=== PATIENT | male | born 1945 | race Caucasian/White ===

== ENCOUNTER → 2017-03-09 20:00 | Outpatient (CLI) | payer OTHER, MEDICARE, SELFPAY | PROVIDERS: Family Provider Internal Medicine; PCP Internal Medicine; Visit Provider Internal Medicine | DX: G47.33 Obstructive sleep apnea (adult) (pediatric) (principal) | CPT/HCPCS: 95810 ==

== ENCOUNTER → 2017-04-13 20:01 | Outpatient (CLI) | payer OTHER, SELFPAY | PROVIDERS: Family Provider Internal Medicine; PCP Internal Medicine; Visit Provider Internal Medicine | DX: G47.33 Obstructive sleep apnea (adult) (pediatric) (principal) | CPT/HCPCS: 95811 ==

== ENCOUNTER → 2017-06-10 09:56 | Outpatient (CLI) | payer OTHER, SELFPAY ==
[2017-06-10 10:27] LABS: Absolute Lymphocyte Count 1.94 X10^3/ul (0.83-4.51); Absolute Neutrophil Count 5.3 X10^3/uL (2.0-7.7); Basophil# 0.05 X10^3/uL; Basophil% 0.6 % (0-1); Eosinophil# 0.51 X10^3/uL; Eosinophils% 6.1 % (0-5); Hematocrit 41.4 % (40-54); Hemoglobin 13.4 g/dl (13.0-16.5); Lymphocyte # 1.94 X10^3/ul (4.0); Lymphocyte % 23.2 % (19-41); Mean Corp Hgb Conc 32.4 g/gl (32-36); Mean Corpuscular Hgb 31.2 pg (27.0-32.0); Mean Corpuscular Volume 96.5 fL (80-94); Mean Platelet Vol. 10.5 fl (6.2-12.0); Monocyte# 0.56 X10^3/uL; Monocyte% 6.7 % (0-10); Neutrophil # 5.29 X10^3/uL (2.7-7.7); Neutrophil % 63.2 % (47-70); Platelet Count 275 K/mm3 (150-450); RBC Distribution Width CV 14.1 % (11.6-14.6); RBC Distribution Width SD 48.1 fl (35.1-43.9); Red Blood Count 4.29 M/mm3 (4.6-6.2); White Blood Count 8.4 K/mm3 (4.4-11.0)
[2017-06-10 10:42] LABS: POSITIVE COUNT NO; POSITIVE DIFFERENTIAL NO; POSITIVE MORPHOLOGY NO
[2017-06-10 11:01] LABS: ALB/GLOB Ratio 1.2 RATIO (0.9-2.4); AST(SGOT) 14 U/L (15-37); Alanine Aminotransfer ALT/SGPT 18 U/L (16-61); Albumin, Serum 3.9 g/dL (3.2-5.0); Alkaline Phosphatase 57 U/L (45-117); Anion Gap 5 (5-15); BUN 17 mg/dL (7-18); BUN/Creat Ratio 13.7 RATIO (10-20); Calcium,Total 8.3 mg/dL (8.5-10.1); Chloride 105 mmol/L (98-107); Cholesterol 164 mg/dL (200); Creatinine, Serum 1.24 mg/dL (0.70-1.30); EST Glomerular Filtration Rate 61 mL/min (>60); Est Glom Filt Rate - Afr Amer 74 mL/min (>60); Globulin 3.2 g/dL (2.2-4.2); Glucose 97 mg/dL (74-106); High Density Lipoprotein 43 mg/dL; Protein, Total 7.1 g/dL (6.4-8.2); Sodium Level 140 mmol/L (136-145); Triglycerides 147 mg/dL; Very Low Density Lipoprotein 29 mg/dL (5-40)
[2017-06-11 07:08] LABS: Hepatitis C Ab <0.1 s/co ratio (0.0-0.9)
== END ==
PROVIDERS: Family Provider Internal Medicine; PCP Internal Medicine; Visit Provider Internal Medicine
DX: Z01.89 Encounter for other specified special examinations (principal); I10 Essential (primary) hypertension; E78.2 Mixed hyperlipidemia
CPT/HCPCS: 36415; 80053; 80061; 85025; 86803; 86804

== ENCOUNTER → 2017-12-16 10:37 | Outpatient (CLI) | payer OTHER, SELFPAY ==
--- OUTSIDE RECORDS SUMMARY | 2017-12-15 15:25 | XMS RPT_ITS ---
:1945 Author Organization [facility] Care Team Providers Name Role Phone LEE RENDON Attending Unavailable Talampas, Lee Attending Unavailable Talampas, Lee Primary Care Unavailable Talampas, Lee Attending Unavailable Talampas, Lee Primary Care Unavailable Talampas, Lee Attending Unavailable Talampas, Lee Referring Unavailable Talampas, Lee Primary Care Unavailable Talampas, Lee Attending Unavailable Talampas, Lee Referring Unavailable Talampas, Lee Primary Care Unavailable PROBLEMS PROBLEMS DATE TYPE CONDITION / CODE ATTENDING STATUS SOURCE 06/10/2017 Unknown Z01.89 - Encounter Pravin Lee Active E[facility] for other specified [facility] / Z01.89(ICD-10) Repository 06/10/2017 Unknown E78.2 - Mixed Talampas, Lee Active [facility] hyperlipidemia / Community E78.2(ICD-10) Hospital Repository 05/13/2017 Unknown G47.33 - Obstructive Talampvincent, Lee Active [facility] sleep apnea (adult) Community (pediatric) / Hospital G47.33(ICD-10) Repository PROCEDURES PROCEDURES No Procedure Records FoundRESULTS RESULTS PROGRESS Observed: 06/16/2017 Status: COMPLETED Source: [place] 4[facility]52 PM [facility] REPOSITORY HNO ID: [id number]: Lee Maice: (none)Author Type: PhysicianType: Progress NotesFiled: 06/17/2017 12:11 AMNote Text:Patient presents with:RecheckSUBJECTIVE:Rosie Alvarenga is a 72 year old year old gentleman here today for 6month follow up appointment for review of medical conditions.Leg pains --back of legs. Hard to move after been sleeping or aftersitting in car driving for a while. Tried roll on pain reliever appliedto lower neck and seemed to have helped. Tried because someone appliedessential oil in same area and seemed to prevent pain in legs after haddriven in the car fo a while after that.Pain from buttocks to posterior knee.On positive note: Feeling better on CPAP. Has Misha on phone to see brad having apneic episodes and down from over 30 an hour to about 2 perhour. Please with being able to sleep straight through the night.thiPlans on setting schedule for AM. Feels bad just sort of wasting time fromafter has breakfast around 7:30 till sits and watches TV for about 2hours. Feels like should be more productive. So will be schedulingwalking or other exercise in the AM. See about adding other activities.Does still sit with uztmutc-ic-wph every day since the had passedaway. Also helping deal with niece who is dying from liver cancer('s sister not dealing well with diagnosis and prognosis).Has gained weight through the winter. Already making healthy lifestylechanges.PAST MEDICAL HISTORYDiagnosis Date- Allergic rhinitis- Benign neoplasm of colon colon polyps- Calculus of kidney- Diverticulosis of colon (without mention of hemorrhage)- Macular degeneration of both eyes dry; seeing Dr. Muhammad- Obesity, unspecified- Other and unspecified hyperlipidemia- Unspecified essential hypertensionCurrent Outpatient Prescriptions:vit C,R-Bb-uhhjj-lutein-zeaxan (PRESERVISION AREDS 2) 458-717-90-0jc-pgfm-sp-mg cap Take 1 capsule by mouth twice daily.atorvastatin (LIPITOR) 10 mg tablet Take 1 tablet by mouth once daily.hydroCHLOROthiazide (HYDRODIURIL, ESIDRIX) 25 mg tablet Take 1 tablet bymouth once daily.COMPOUNDED PRESCRIPTION Lab draw: Hepatitis C antibody with reflexconfirmation, CBC with platelets, CMP, Lipid (I10) Essentialhypertension; (E78.2) Mixed hyperlipidemia; (Z01.89) Laboratory procedurecitalopram (CELEXA) 40 mg tablet Take 1 tablet by mouth once daily.fluticasone (FLONASE) 50 mcg/actuation nasal spray Use 1 [place] in eachnostril daily at bedtime.No current facility-administered medications for this visit.OBJECTIVE:BP 128/70 Pulse 60 Resp 16 Wt 105.7 kg (233 lb) SpO2 96% BMI32.5 kg/f6Debtxpb is alert, oriented times 3, no apparent distress, affect isbright, reactive.Last 5 Encounter BP Readings: Date: BP: 06/16/2017 128/70 12/07/2016 138/58 06/01/2016 130/80 11/25/2015 147/68 07/16/2015 122/70Last 5 Encounter Wt Readings: Date: Wt: 06/16/2017 105.7 kg (233 lb) 12/07/2016 100.7 kg (222 lb) 06/01/2016 101.2 kg (223 lb) 11/25/2015 98.9 kg (218 lb) 07/16/2015 102.1 kg (225 lb)Heart: Regular rate, rhythm, no murmurs, gallops, rubs.Lungs: Clear to auscultation, bilaterally, breathing non labored.Ext: No cyanosis, clubbing, or edema.RESULTSCBC W/DIFF, AUTOMATED Collected: 06/10/2017 10:06 AM Status: F Source:[facility] REPOSITORYTYPE CODE TESTS RESULT OUT OF RANGE REFERENCE UNITSLAB L100.1000 WBC 8.4 Normal 4.4-11.0 K/mm3LAB L100.1200 RBC 4.29 Low 4.6-6.2 M/mm3LAB L100.1300 HGB 13.4 Normal 13.0-16.5 g/dlLAB L100.1400 HCT 41.4 Normal 40-54 %LAB L100.1500 MCV 96.5 High 80-94 fLLAB L100.1600 MCH 31.2 Normal 27.0-32.0 pgLAB L100.1700 MCHC 32.4 Normal 32-36 g/glLAB L100.1810 RDW CV 14.1 Normal 11.6-14.6 %LAB L100.1820 RDW SD 48.1 High 35.1-43.9 flLAB L100.1900 PLT 275 Normal 150-450 K/mm3LAB L100.2000 MPV 10.5 Normal 6.2-12.0 flLAB L100.2100 NEUT% 63.2 Normal 47-70 %LAB L100.2200 LY% 23.2 Normal 19-41 %LAB L100.2300 MONO% 6.7 Normal 0-10 %LAB L100.2400 EO% 6.1 High 0-5 %LAB L100.2500 BASO% 0.6 Normal 0-1 %LAB L100.2550 IM GRAN % 0.200 Normal 0.0-0.9 %Result Comment: IG% - Immature Granulocytes (promyelocytes, myelocytes andmetamyelocytes) > 1% indicates that a LEFT SHIFT is Present.LAB L100.2620 Absolute Neut 5.3 Normal 2.0-7.7 X10 3/uLLAB L100.2720 Absolute Lymph 1.94 Normal 0.83-4.51 X10 3/ulPerformed By: #### L100.0100 #### [facility] [address] [place], [address] COMPREHENSIVE METABOLIC PROFIL Collected: 06/10/2017 10:06 AM Status: FSource: [facility] REPOSITORYTYPE CODE TESTS RESULT OUT OF RANGE REFERENCE UNITSLAB L501.0100 GLU 97 Normal 74-106 mg/dLResult Comment: Please note revised GLUCOSE reference range eyhjcmsqk88/02/2018.LAB L501.1000 BUN 17 Normal 7-18 mg/dLLAB L501.1100 CREAT,SERUM 1.24 Normal 0.70-1.30 mg/dLResult Comment: The validity of the calculated GFR AND GFRAA in patientsover 70 years has not been determined. Clinical correlation is essential.LAB L501.1110 EST GFR 61 Normal >60 mL/minResult Comment: Non- GFR CalcLAB L501.1115 EST GFR - AA 74 Normal >60 mL/minResult Comment: GFR CalcLAB L501.1300 BUN/CRE 13.7 Normal 10-20 RATIOLAB L501.1500 T PROT 7.1 Normal 6.4-8.2 g/dLLAB L501.1800 ALB 3.9 Normal 3.2-5.0 g/dLLAB L501.1950 GLOB 3.2 Normal 2.2-4.2 g/dLLAB L501.2000 A/G 1.2 Normal 0.9-2.4 RATIOLAB L501.2200 CA 8.3 Low 8.5-10.1 mg/dLLAB L501.4100 AST 14 Low 15-37 U/LLAB L501.4305 ALK P 57 Normal 45-117 U/LLAB L501.4405 ALT 18 Normal 16-61 U/LLAB L501.4600 T BILI 0.70 Normal 0.20-1.00 mg/dLLAB L501.5300 NA 140 Normal 136-145 mmol/LLAB L501.5600 K 4.0 Normal 3.5-5.1 mmol/LLAB L501.5900 CL 105 Normal 98-107 mmol/LLAB L501.6100 CO2 30.0 Normal 21.0-32.0 mmol/LLAB L501.6200 GAP 5 Normal 5-15 ?Performed By: #### L500.4050, L500.4100 #### [facility] [address] [place], [address] LIPID PROFILE Collected: 06/10/2017 10:06 AM Status: F Source: [facility] REPOSITORYTYPE CODE TESTS RESULT OUT OF RANGE REFERENCE UNITSLAB L501.4900 CHOL 164 Normal 200 mg/dLResult Comment: <200 mg/dL Desirable 200-240 mg/dL Borderline >240 mg/dLHigh RiskLAB L501.5000 TRIG 147 Normal ? mg/dLResult Comment: The drugs N-Acetylcysteine and Metamizole may falselydepress this assay. Serum Triglycerides Reference Interval Normal <150mg/dL Borderline high 150 - 199 mg/dL High 200 - 499 mg/dL Very High > or= 500 mg/dLLAB L501.6400 HDL 43 Normal ? mg/dLResult Comment: The drugs N-Acetylcysteine and Metamizole may falselydepress this assay. Reference Range HDL <40 mg/dL Low HDL Cholesterol HDL>or= 60 mg/dL High HDL CholesterolLAB L501.6500 LDL 92 Normal 0-130 mg/dLLAB L501.6600 VLDL 29 Normal 5-40 mg/dLPerformed By: #### L500.4050, L500.4100 #### [facility] [address] [place], [address] HEPATITS C AB W/ VERIFICATION Collected: 06/10/2017 10:06 AM Status: FSource: [facility] REPOSITORYTYPE CODE TESTS RESULT OUT OF RANGE REFERENCE UNITSLAB L3100.0750 HCV Ab <0.1 Normal 0.0-0.9 s/co ratioLAB L3100.0765 COMMENT Comment Normal . ?Result Comment: Non reactive HCV antibody screen is consistent with no HCVinfection, unless recent infection is suspected or other evidence existsto indicate HCV infection. Performed at: [facility] [id number] Jacquard Fixer: Aflonso Tipton PhD, Phone:[phone] AND PLAN:Encounter Diagnosis ICD-10-CM1. Essential hypertension I102. Low serum calcium R79.89 COMP METABOLIC PANEL VITAMIN D 25 HYDROXY3. Mixed hyperlipidemia E78.24. Pain in both lower extremities M79.604 M79.6055. Class 1 obesity due to excess calories without serious comorbidity withbody mass index (BMI) of 32.0 to 32.9 in adult E66.09 Z68.326. Laboratory procedure Z01.89 CANCELED: HEP C AB IA W/CONF SCRN7. Encounter for long-term current use of medication Z79.899 COMPMETABOLIC PANEL CBCBP controlled. Continue present management.Adjust Vitamin D as indicated--noted calcium level a little low.Lipids controlled. Continue present management.Discussed management of leg pains. Sounds like possible leg cramps. Okayto try essential oils and/or roll-on pain relief to see if helps. Also trystretching exercises. Further evaluation and treatment as indicated.Above issues addressed with patient. Patient involved in shared decisionmaking for management of her medical issues.History and medications reviewed. Epic updated as neededRefills taken care of and meds adjusted as indicated after reviewedhistory, exam and labs.Health Maintenance reviewed. Updated record and/or ordered tests asrecorded.Discussed that as long as healthy enough to want to pursue treatment forcancer if were to find it, then would continue screening for cancer--hernesto asked about colonoscopy since due next year if/when would quitchecking.Encouraged on efforts at healthy diet and regular exercise and adequatesleep.Needs to keep working on diet and exercise with lifestyle changes foreffective weight loss.Emotional support given. Encouraged him and to consider time away torest and regroup so can keep helping with caring for other people.The majority of the visit was spent counseling and/or coordinating carefor the patient. Svbf-dk-fojr time was at least 40 minutes.Lee Rendon MD CNOV Observed: 06/16/2017 Status: COMPLETED Source: [place] 4:40 PM [facility] REPOSITORY Office Visit (INTMWS) ROSIE ALVARENGA ([id number]) 1945 MDate Time Provider Department06/16/17 4:40 PM LEE RENDON INTMWS During your visit today, we recorded the following information about you: Pulse Respiration Blood pressure Weight 60/minute 16/minute 128/70 105.7 kgLee Rendon MD 06/17/2017 12:11 AM SignedPatient presents with:RecheckSUBJECTIVE:Rosie Alvarenga is a 72 year old year old gentleman here today for 6 monthfollow up appointment for review of medical conditions.Leg pains --back of legs. Hard to move after been sleeping or after sitting incar driving for a while. Tried roll on pain reliever applied to lower neck andseemed to have helped. Tried because someone applied essential oil in same areaand seemed to prevent pain in legs after had driven in the car fo a while afterthat.Pain from buttocks to posterior knee.On positive note: Feeling better on CPAP. Has Misha on phone to see how otfenhaving apneic episodes and down from over 30 an hour to about 2 per hour.Please with being able to sleep straight through the night.thiPlans on setting schedule for AM. Feels bad just sort of wasting time fromafter has breakfast around 7:30 till sits and watches TV for about 2 hours.Feels like should be more productive. So will be scheduling walking or otherexercise in the AM. See about adding other activities. Does still sit phjizuhnuen-bi-mct every day since the had . Also helping dealwith niece who is dying from liver cancer ('s sister not dealing well withdiagnosis and prognosis).Has gained weight through the winter. Already making healthy lifestyle changes.PAST MEDICAL HISTORYDiagnosis Date- Allergic rhinitis- Benign neoplasm of colon colon polyps- Calculus of kidney- Diverticulosis of colon (without mention of hemorrhage)- Macular degeneration of both eyes ANDquot;dryANDquot;; seeing Dr. Muhammad- Obesity, unspecified- Other and unspecified hyperlipidemia- Unspecified essential hypertensionCurrent Outpatient Prescriptions:vit C,N-Qr-vkpuu-lutein-zeaxan (PRESERVISION AREDS 2) 215-848-30-1xb-dlwt-ob-mg cap Take 1 capsule by mouth twice daily.atorvastatin (LIPITOR) 10 mg tablet Take 1 tablet by mouth once daily.hydroCHLOROthiazide (HYDRODIURIL, ESIDRIX) 25 mg tablet Take 1 tablet by mouthonce daily.COMPOUNDED PRESCRIPTION Lab draw: Hepatitis C antibody with reflexconfirmation, CBC with platelets, CMP, Lipid (I10) Essential hypertension;(E78.2) Mixed hyperlipidemia; (Z01.89) Laboratory procedurecitalopram (CELEXA) 40 mg tablet Take 1 tablet by mouth once daily.fluticasone (FLONASE) 50 mcg/actuation nasal spray Use 1 [place] in each nostrildaily at bedtime.No current facility-administered medications for this visit.OBJECTIVE:BP 128/70 Pulse 60 Resp 16 Wt 105.7 kg (233 lb) SpO2 96% BMI 32.5kg/n7Jekconc is alert, oriented times 3, no apparent distress, affect is bright,reactive.Last 5 Encounter BP Readings: Date: BP: 06/16/2017 128/70 12/07/2016 138/58 06/01/2016 130/80 11/25/2015 147/68 07/16/2015 122/70Last 5 Encounter Wt Readings: Date: Wt: 06/16/2017 105.7 kg (233 lb) 12/07/2016 100.7 kg (222 lb) 06/01/2016 101.2 kg (223 lb) 11/25/2015 98.9 kg (218 lb) 07/16/2015 102.1 kg (225 lb)Heart: Regular rate, rhythm, no murmurs, gallops, rubs.Lungs: Clear to auscultation, bilaterally, breathing non labored.Ext: No cyanosis, clubbing, or edema.RESULTSCBC W/DIFF, AUTOMATED Collected: 06/10/2017 10:06 AM Status: F Source: [facility] REPOSITORYTYPE CODE TESTS RESULT OUT OF RANGE REFERENCE UNITSLAB L100.1000 WBC 8.4 Normal 4.4-11.0 K/mm3LAB L100.1200 RBC 4.29 Low 4.6-6.2 M/mm3LAB L100.1300 HGB 13.4 Normal 13.0-16.5 g/dlLAB L100.1400 HCT 41.4 Normal 40-54 %LAB L100.1500 MCV 96.5 High 80-94 fLLAB L100.1600 MCH 31.2 Normal 27.0-32.0 pgLAB L100.1700 MCHC 32.4 Normal 32-36 g/glLAB L100.1810 RDW CV 14.1 Normal 11.6-14.6 %LAB L100.1820 RDW SD 48.1 High 35.1-43.9 flLAB L100.1900 PLT 275 Normal 150-450 K/mm3LAB L100.2000 MPV 10.5 Normal 6.2-12.0 flLAB L100.2100 NEUT% 63.2 Normal 47-70 %LAB L100.2200 LY% 23.2 Normal 19-41 %LAB L100.2300 MONO% 6.7 Normal 0-10 %LAB L100.2400 EO% 6.1 High 0-5 %LAB L100.2500 BASO% 0.6 Normal 0-1 %LAB L100.2550 IM GRAN % 0.200 Normal 0.0-0.9 %Result Comment: IG% - Immature Granulocytes (promyelocytes, myelocytes andmetamyelocytes) ANDgt; 1% indicates that a LEFT SHIFT is Present.LAB L100.2620 Absolute Neut 5.3 Normal 2.0-7.7 X10 3/uLLAB L100.2720 Absolute Lymph 1.94 Normal 0.83-4.51 X10 3/ulPerformed By: #### L100.0100 #### [facility] [address], [address] COMPREHENSIVE METABOLIC PROFIL Collected: 06/10/2017 10:06 AM Status: F Source:[facility] REPOSITORYTYPE CODE TESTS RESULT OUT OF RANGE REFERENCE UNITSLAB L501.0100 GLU 97 Normal 74-106 mg/dLResult Comment: Please note revised GLUCOSE reference range uvofkswoy41/02/2018.LAB L501.1000 BUN 17 Normal 7-18 mg/dLLAB L501.1100 CREAT,SERUM 1.24 Normal 0.70-1.30 mg/dLResult Comment: The validity of the calculated GFR AND GFRAA in patients over70 years has not been determined. Clinical correlation is essential.LAB L501.1110 EST GFR 61 Normal ANDgt;60 mL/minResult Comment: Non- GFR CalcLAB L501.1115 EST GFR - AA 74 Normal ANDgt;60 mL/minResult Comment: GFR CalcLAB L501.1300 BUN/CRE 13.7 Normal 10-20 RATIOLAB L501.1500 T PROT 7.1 Normal 6.4-8.2 g/dLLAB L501.1800 ALB 3.9 Normal 3.2- 5.0 g/dLLAB L501.1950 GLOB 3.2 Normal 2.2-4.2 g/dLLAB L501.2000 A/G 1.2 Normal 0.9-2.4 RATIOLAB L501.2200 CA 8.3 Low 8.5-10.1 mg/dLLAB L501.4100 AST 14 Low 15-37 U/LLAB L501.4305 ALK P 57 Normal 45-117 U/LLAB L501.4405 ALT 18 Normal 16-61 U/LLAB L501.4600 T BILI 0.70 Normal 0.20-1.00 mg/dLLAB L501.5300 NA 140 Normal 136-145 mmol/LLAB L501.5600 K 4.0 Normal 3.5-5.1 mmol/LLAB L501.5900 CL 105 Normal 98-107 mmol/LLAB L501.6100 CO2 30.0 Normal 21.0-32.0 mmol/LLAB L501.6200 GAP 5 Normal 5- 15 ?Performed By: #### L500.4050, L500.4100 #### [facility] [address] [place], [address] LIPID PROFILE Collected: 06/10/2017 10:06 AM Status: F Source: [facility] REPOSITORYTYPE CODE TESTS RESULT OUT OF RANGE REFERENCE UNITSLAB L501.4900 CHOL 164 Normal 200 mg/dLResult Comment: ANDlt;200 mg/dL Desirable 200-240 mg/dL Borderline ANDgt;240 mg/dLHigh RiskLAB L501.5000 TRIG 147 Normal ? mg/dLResult Comment: The drugs N-Acetylcysteine and Metamizole may falsely depressthis assay. Serum Triglycerides Reference Interval Normal ANDlt;150 mg/dLBorderline high 150 - 199 mg/dL High 200 - 499 mg/dL Very High ANDgt; or = 500mg/dLLAB L501.6400 HDL 43 Normal ? mg/dLResult Comment: The drugs N-Acetylcysteine and Metamizole may falsely depressthis assay. Reference Range HDL ANDlt;40 mg/dL Low HDL Cholesterol HDL ANDgt;or= 60mg/dL High HDL CholesterolLAB L501.6500 LDL 92 Normal 0-130 mg/dLLAB L501.6600 VLDL 29 Normal 5-40 mg/dLPerformed By: #### L500.4050, L500.4100 #### [facility] [address] [place], [place], [id number] [phone] C AB W/ VERIFICATION Collected: 06/10/2017 10:06 AM Status: F Source:[facility] REPOSITORYTYPE CODE TESTS RESULT OUT OF RANGE REFERENCE UNITSLAB L3100.0750 HCV Ab ANDlt;0.1 Normal 0.0-0.9 s/co ratioLAB L3100.0765 COMMENT Comment Normal . ?Result Comment: Non reactive HCV antibody screen is consistent with no HCVinfection, unless recent infection is suspected or other evidence exists toindicate HCV infection. Performed at: [address] [id number] Jacquard Fixer: Alfonso Tipton PhD, Phone: [phone] AND PLAN:Encounter Diagnosis ICD-10-CM1. Essential hypertension I102. Low serum calcium R79.89 COMP METABOLIC PANEL VITAMIN D 25 HYDROXY3. Mixed hyperlipidemia E78.24. Pain in both lower extremities M79.604 M79.6055. Class 1 obesity due to excess calories without serious comorbidity with bodymass index (BMI) of 32.0 to 32.9 in adult E66.09 Z68.326. Laboratory procedure Z CANCELED: HEP C AB IA W/CONF SCRN7. Encounter for long-term current use of medication Z79.899 COMP METABOLICPANEL CBCBP controlled. Continue present management.Adjust Vitamin D as indicated--noted calcium level a little low.Lipids controlled. Continue present management.Discussed management of leg pains. Sounds like possible leg cramps. Okay to tryessential oils and/or roll-on pain relief to see if helps. Also try stretchingexercises. Further evaluation and treatment as indicated.Above issues addressed with patient. Patient involved in shared decision makingfor management of her medical issues.History and medications reviewed. Epic updated as neededRefills taken care of and meds adjusted as indicated after reviewed history,exam and labs.Health Maintenance reviewed. Updated record and/or ordered tests as recorded.Discussed that as long as healthy enough to want to pursue treatment for cancerif were to find it, then would continue screening for cancer--he had askedabout colonoscopy since due next year if/when would quit checking.Encouraged on efforts at healthy diet and regular exercise and adequate sleep.Needs to keep working on diet and exercise with lifestyle changes foreffective weight loss.Emotional support given. Encouraged him and to consider time away to restand regroup so can keep helping with caring for other people.The majority of the visit was spent counseling and/or coordinating care for thepatient. Wxza-ii-wzsq time was at least 40 minutes.Vikram Campbell Provider: SELF [200]Allergies As of Date: 06/16/2017 Noted Allergy ReactionPENICILLINS 04/07/2005 4 - HivesDate Reviewed: 06/16/2017Reviewed by: Rosalina Johnson Ship Pilot - Fully AssessedReason for Visit: Recheck [92]Primary Visit Diagnosis:Essential hypertension [I10] Other Visit Diagnoses:Low serum calcium [R79.89] Mixed hyperlipidemia [E78.2] Pain in both lower extremities [M79.604, M79.605] Class 1 obesity due to excess calories without serious comorbidity with body mass index (BMI) of 32.0 to 32.9 in adult [E66.09, Z68.32] Laboratory procedure [Z01.89] Encounter for long-term current use of medication [Z79.899]Order(s):fluticasone (FLONASE) 50 mcg/actuation nasal sprayUse 1 [place] in each nostril daily at bedtime.Disp: 1 BottleRfl: 11 citalopram (CELEXA) 40 mg tabletTake 1 tablet by mouth once daily.Disp: 30 tabletRfl: 11 COMP METABOLIC PANEL [SQCMP] Order #: [id number] FUTURE CBC [SQCBC] Order #: [id number] FUTURE VITAMIN D 25 HYDROXY [SQVITD] Order #: [id number] FUTUREPrescriptions as of 06/16/2017 Sig: FLUTICASONE 50 MCG/ACTUATION * Use 1 [place] in each nostril d* CITALOPRAM 40 MG TABLET Take 1 tablet by mouth once d* VIT C 250 MG-E 200 UNIT-ZINC * Take 1 capsule by mouth twice* ATORVASTATIN 10 MG TABLET Take 1 tablet by mouth once d* HYDROCHLOROTHIAZIDE 25 MG TAB* Take 1 tablet by mouth once d* COMPOUNDED PRESCRIPTION Lab draw: Hepatitis C antibo*Problem List As Of Date 06/16/2017 Noted Resolved OVERWEIGHT [E66.9] Essential hypertension [I10] Hyperlipidemia [E78.5] COLON POLYPS [D12.6] More... DIVERTICULOSIS OF COLON W/O BLEED [K57.30] Depressive disorder, not elsewhere classified [*INVALID FOR*03/12/2010 Anxiety state, unspecified [F41.1] INVALID FOR*03/12/2010 Personal history of tobacco use, presenting haz*INVALID FOR* More... PROSTATIC DISORDER NOS [N42.9] INVALID FOR* CHRONIC RHINITIS [J31.0] INVALID FOR* Inguinal Hernia [K40.90] INVALID FOR* Rash [R21] INVALID FOR* Allergic rhinitis [J30.9] Sleep-wake 24 hour cycle disruption [G47.20] INVALID FOR* Primary osteoarthritis of right knee [M17.11] INVALID FOR* More...Prescriptions ordered this encounter Disp Refills Start End FLUTICASONE 50 MCG/ACTUATION NASAL S* 1 Brennon* 11 06/16/2017 Route: EACH NOSTRIL Sig: Use 1 [place] in each nostril daily at bedtime. CITALOPRAM 40 MG TABLET 30 t* 11 06/16/2017 Route: ORAL Sig: Take 1 tablet by mouth once daily.Medications Discontinued During This Encounter fluticasone (FLONASE) 50 mcg/actuati* 3 Brennon* 3 06/01/2016 06/16/2017 Route: EACH NOSTRIL Sig: Use 1 [place] in each nostril daily at bedtime. Disc: Reason for discontinue is not on file. citalopram (CELEXA) 40 mg tablet 90 t* 3 06/01/2016 06/16/2017 Route: ORAL Sig: Take 1 tablet by mouth once daily. Disc: Reason for discontinue is not on file.Disposition: Return in about 6 months (around 12/16/2017) for 6 months follow up, With labs prior.Follow-up and Disposition History RecordedEncounter Number: [id number] Status:Closed by LEE RENDON MD on 06/17/17 CBC W/DIFF, AUTOMATED Collected: 06/10/2017 Status: F Source: [place] 10:06 AM [facility] REPOSITORY TYPE CODE TESTS RESULT OUT OF RANGE REFERENCE UNITS LAB L100.1000 Normal 4.4-11.0 K/mm3 WBC 8.4 LAB L100.1200 Low 4.6-6.2 M/mm3 RBC 4.29 LAB L100.1300 Normal 13.0-16.5 g/dl HGB 13.4 LAB L100.1400 Normal 40-54 % HCT 41.4 LAB L100.1500 High 80-94 fL MCV 96.5 LAB L100.1600 Normal 27.0-32.0 pg MCH 31.2 LAB L100.1700 Normal 32-36 g/gl MCHC 32.4 LAB L100.1810 Normal 11.6-14.6 % RDW 14.1 CV LAB L100.1820 High 35.1-43.9 fl RDW 48.1 SD LAB L100.1900 Normal 150-450 K/mm3 PLT 275 LAB L100.2000 Normal 6.2-12.0 fl MPV 10.5 LAB L100.2100 Normal 47-70 % NEUT% 63.2 LAB L100.2200 Normal 19-41 % LY% 23.2 LAB L100.2300 Normal 0-10 % MONO% 6.7 LAB L100.2400 High 0-5 % EO% 6.1 LAB L100.2500 Normal 0-1 % BASO% 0.6 LAB L100.2550 Normal 0.0-0.9 % IM 0.200 GRAN % Result Comment: IG% - Immature Granulocytes (promyelocytes, myelocytes and metamyelocytes) > 1% indicates that a LEFT SHIFT is Present. LAB L100.2620 Normal 2.0-7.7 X10 3/uL Absolute Neut 5.3 LAB L100.2720 Normal 0.83-4.51 X10 3/ul Absolute Lymph 1.94 Performed By: #### L100.0100 #### [facility] [address] [place], [place] [address]all [address]izabeth. [place], [place], [address] COMPREHENSIVE METABOLIC Collected: 06/10/2017 Status: F Source: [facility] 10:06 AM [facility] REPOSITORY TYPE CODE TESTS RESULT OUT OF RANGE REFERENCE UNITS LAB L501.0100 Normal 74-106 mg/dL GLU 97 Result Comment: Please note revised GLUCOSE reference range effective 2017. LAB L501.1000 Normal 7-18 mg/dL BUN 17 LAB L501.1100 Normal 0.70-1.30 mg/dL CREAT,SERUM 1.24 Result Comment: The validity of the calculated GFR AND GFRAA in patients over 70 years has not been determined. Clinical correlation is essential. LAB L501.1110 Normal >60 mL/min EST GFR 61 Result Comment: Non- GFR Calc LAB L501.1115 Normal >60 mL/min EST GFR - AA 74 Result Comment: GFR Calc LAB L501.1300 Normal 10-20 RATIO BUN/CRE 13.7 LAB L501.1500 Normal 6.4-8.2 g/dL T PROT 7.1 LAB L501.1800 Normal 3.2-5.0 g/dL ALB 3.9 LAB L501.1950 Normal 2.2-4.2 g/dL GLOB 3.2 LAB L501.2000 Normal 0.9-2.4 RATIO A/G 1.2 LAB L501.2200 Low 8.5-10.1 mg/dL CA 8.3 LAB L501.4100 Low 15-37 U/L AST 14 LAB L501.4305 Normal 45-117 U/L ALK P 57 LAB L501.4405 Normal 16-61 U/L ALT 18 LAB L501.4600 Normal 0.20-1.00 mg/dL T BILI 0.70 LAB L501.5300 Normal 136-145 mmol/L NA 140 LAB L501.5600 Normal 3.5-5.1 mmol/L K 4.0 LAB L501.5900 Normal 98-107 mmol/L CL 105 LAB L501.6100 Normal 21.0-32.0 mmol/L CO2 30.0 LAB L501.6200 Normal 5-15 GAP 5 Performed By: #### L500.4050, L500.4100 #### [facility] [address], [place], [id number] LIPID PROFILE Collected: 06/10/2017 Status: F Source: [place] 10:06 AM [facility] REPOSITORY TYPE CODE TESTS RESULT OUT OF RANGE REFERENCE UNITS LAB L501.4900 Normal 200 mg/dL CHOL 164 Result Comment: <200 mg/dL Desirable 200-240 mg/dL Borderline >240 mg/dL High Risk LAB L501.5000 Normal mg/dL TRIG 147 Result Comment: The drugs N-Acetylcysteine and Metamizole may falsely depress this assay. Serum Triglycerides Reference Interval Normal <150 mg/dL Borderline high 150 - 199 mg/dL High 200 - 499 mg/dL Very High > or = 500 mg/dL LAB L501.6400 Normal mg/dL HDL 43 Result Comment: The drugs N-Acetylcysteine and Metamizole may falsely depress this assay. Reference Range HDL <40 mg/dL Low HDL Cholesterol HDL >or= 60 mg/dL High HDL Cholesterol LAB L501.6500 Normal 0-130 mg/dL LDL 92 LAB L501.6600 Normal 5-40 mg/dL VLDL 29 Performed By: #### L500.4050, L500.4100 #### [facility] [address], [place], [id number] HEPATITS C AB W/ Collected: 06/10/2017 Status: F Source: [place] VERIFICATION 10:06 AM [facility] REPOSIT[facility] TYPE CODE TESTS RESULT OUT OF RANGE REFERENCE UNITS LAB L3100.0750 Normal 0.0-0.9 s/co ratio HCV Ab <0.1 LAB L3100.0765 Normal . COMMENT Comment Result Comment: Non reactive HCV antibody screen is consistent with no HCV infection, unless recent infection is suspected or other evidence exists to indicate HCV infection. Performed at: - [facility] [id number] Jacquard Fixer: Alfonso Tipton PhD, Phone: [phone] Performed By: #### L3100.0725 #### [facility] (refer to report for specific site) refer to report for address and phone number ALLERGIES ALLERGIES DATE TYPE / CODE NAME / CODE REACTION SEVERITY SOURCE 10/29/2015 Drug Penicillins/L34795 Hives Unknown Annette Allergy/416 0476(RXNORM) [facility] 804935([facility] ED CT) Repository 04/07/2005 Drug PENICILLINS HIVES [facility] Class/[address] [address] [place] 1003[facility] ENCOUNTERS ENCOUNTERS ADMIT/DISCHARGE ACCOUNT ADMITTING ENCOUNTER LOCATION SOURCE NUMBER CLASS 12/15/2017 [id number] [facility] ing:LAB Repository 06/16/2017/06/21/19 [id number] Ambulatory [address] Repository 06/10/2017 [id number] [facility] ing:LAB Repository 04/13/2017 [id number] [facility] ing:SL Repository 03/09/2017 [id number] [facility] ing:SL Repository PAYERS PAYERS ENCOUNTER GUARANTOR PAYER SUBSCRIBER SOURCE 12/15/2017 ROSIE [id number] Primary [facility] Insurance:Lashell AZULODOB: [place], [place] icy Number: [id number] [facility] [address]Uug: [phone]) [id number] Repository [phone] () Date:[id number] [address]WO: 12/15/2017 Secondary NOT GIVENUNK Annette Insurance:SELF PAY [facility]: Effective Repository Date:2017-12-15 06/10/2017 Roise Qetegd362 Primary Rosie [place] Insurance:AULTCAREPol MaglioDOB: [place], [place] icy Number: [id number] [facility] [address]Srw: 330 [id number] Repository [phone] () Date:[id number] [place] [id number]: 06/10/2017 Secondary NOT GIVENUNK Ethel Insurance:SELF PAY [facility] Number: Effective Repository Date:2017-06-10 04/13/2017 Rosie [id number] Primary Rosie [place] Insurance:AULTCAREPol MaglioDOB: [place], [place] icy Number: [id number] [facility] [id number]: 330 [id number] Repository [phone] () Date:[id number] [address]PK: 04/13/2017 Secondary NOT GIVENUNK Ethel Insurance:SELF PAY [facility] Number: Effective Repository Date:2017-03-29 03/09/2017 Rosie [id number] Primary Rosie Annette [place] Insurance:AULTCAREPol MaglioDOB: [place], [place] icy Number: [id number] Hospital [id number]: 330 [id number] Repository [phone] () Date:[id number] [address]SP: 03/09/2017 Secondary Rosie Annette Insurance:MEDICARE A MaglioDOB: [facility] Number: [id number] Hospital [id number] Repository Date:2017-01-07 03/09/2017 Tertiary NOT GIVENUNK Ethel Insurance:SELF PAY [facility] Number: Effective Repository Date:2017-01-07
[2017-12-16 11:45] LABS: Hemoglobin 14.1 g/dl (13.0-16.5); Mean Corp Hgb Conc 32.8 g/gl (32-36); Mean Corpuscular Hgb 31.7 pg (27.0-32.0); Mean Corpuscular Volume 96.6 fL (80-94); Mean Platelet Vol. 10.8 fl (6.2-12.0); Platelet Count 325 K/mm3 (150-450); Red Blood Count 4.45 M/mm3 (4.6-6.2); White Blood Count 9.3 K/mm3 (4.4-11.0)
[2017-12-16 11:47] LABS: Scan Indicated on CBC? Y/N NO
[2017-12-16 12:12] LABS: AST(SGOT) 14 U/L (15-37); Alanine Aminotransfer ALT/SGPT 25 U/L (16-61); Albumin, Serum 3.7 g/dL (3.2-5.0); Alkaline Phosphatase 62 U/L (45-117); Anion Gap 7 (5-15); BUN 18 mg/dL (7-18); BUN/Creat Ratio 15.3 RATIO (10-20); Chloride 104 mmol/L (98-107); Cholesterol 171 mg/dL (200); Creatinine, Serum 1.18 mg/dL (0.70-1.30); EST Glomerular Filtration Rate 64 mL/min (>60); Est Glom Filt Rate - Afr Amer 78 mL/min (>60); Globulin 3.8 g/dL (2.2-4.2); Glucose 89 mg/dL (74-106); High Density Lipoprotein 42 mg/dL; Protein, Total 7.5 g/dL (6.4-8.2); Sodium Level 142 mmol/L (136-145); Triglycerides 142 mg/dL; Very Low Density Lipoprotein 28 mg/dL (5-40)
[2017-12-16 12:20] LABS: Vitamin D,25 Hydroxy 16.8 ng/mL (29.95-100.01)
== END ==
PROVIDERS: Family Provider Internal Medicine; PCP Internal Medicine; Referring Provider Internal Medicine; Visit Provider Internal Medicine
DX: E83.51 Hypocalcemia (principal); Z79.899 Other long term (current) drug therapy
CPT/HCPCS: 36415; 80053; 80061; 82306; 85027

== ENCOUNTER → 2018-06-27 10:37 | Outpatient (CLI) | payer OTHER, SELFPAY ==
[2015-11-12 17:00] VITALS: BMI 31.8
[2018-06-27 11:50] LABS: Hemoglobin 14.6 g/dl (13.0-16.5); Mean Corp Hgb Conc 32.4 g/gl (32-36); Mean Corpuscular Hgb 30.1 pg (27.0-32.0); Mean Corpuscular Volume 92.8 fL (80-94); Mean Platelet Vol. 10.5 fl (6.2-12.0); Platelet Count 287 K/mm3 (150-450); RBC Distribution Width CV 14.6 % (11.6-14.6); RBC Distribution Width SD 48.4 fl (35.1-43.9); Red Blood Count 4.85 M/mm3 (4.6-6.2); White Blood Count 8.5 K/mm3 (4.4-11.0)
[2018-06-27 11:51] LABS: Scan Indicated on CBC? Y/N NO
[2018-06-27 12:15] LABS: ALB/GLOB Ratio 1.1 RATIO (0.9-2.4); AST(SGOT) 16 U/L (15-37); Alanine Aminotransfer ALT/SGPT 20 U/L (16-61); Albumin, Serum 3.8 g/dL (3.2-5.0); Alkaline Phosphatase 59 U/L (45-117); Anion Gap 1 (5-15); BUN 15 mg/dL (7-18); BUN/Creat Ratio 13.2 RATIO (10-20); Calcium,Total 8.5 mg/dL (8.5-10.1); Chloride 107 mmol/L (98-107); Cholesterol 166 mg/dL (200); Creatinine, Serum 1.14 mg/dL (0.70-1.30); EST Glomerular Filtration Rate 67 mL/min (>60); Est Glom Filt Rate - Afr Amer 81 mL/min (>60); Globulin 3.5 g/dL (2.2-4.2); Glucose 91 mg/dL (74-106); High Density Lipoprotein 40 mg/dL; Potassium 3.9 mmol/L (3.5-5.1); Protein, Total 7.3 g/dL (6.4-8.2); Sodium Level 139 mmol/L (136-145); Triglycerides 155 mg/dL; Very Low Density Lipoprotein 31 mg/dL (5-40)
[2018-06-27 12:18] LABS: Vitamin D,25 Hydroxy 11.3 ng/mL (29.95-100.01)
== END ==
PROVIDERS: Family Provider Internal Medicine; PCP Internal Medicine; Referring Provider Internal Medicine; Visit Provider Internal Medicine
DX: E55.9 Vitamin D deficiency, unspecified (principal); E78.2 Mixed hyperlipidemia; I10 Essential (primary) hypertension; Z79.899 Other long term (current) drug therapy
CPT/HCPCS: 36415; 80053; 80061; 82306; 85027

== ENCOUNTER → 2018-12-05 15:49 | Outpatient (CLI) | payer OTHER, SELFPAY ==
[2015-11-12 17:00] VITALS: BMI 31.8
--- NOTE | 2018-12-05 | COLBX_PTH ---
PATIENT: ROSIE BABIN LOC: [facility] U#:[id number] AGE/SX: 79/M ROOM: RE12/05/[address]: Dr. Zana Pnadya MD : 1945 BED: DIS: SPEC #: [id number] RECD: 12/06/18 09:17 STATUS: BAIRON RELatonia #: [id number] MARKY: 12/05/18 00:[address]: Zana Pandya DEPT: SURGICAL PATHOLOGY RECD BY: Edmar Frankel ENTERED: 12/06/18 09:18 SP TYPE: COLON BX OTHR DR: Dr. Esther Costello MD Tissues: A - Transverse colon B - Rectosigmoid junction Procedures: Surgery Specimen Level IV HEADER OPERATION: Colonoscopy PRE-OP DIAGNOSIS: Z86.010, Z12.11 TISSUE SUBMITTED: A - Transverse colon polyp, B - Rectosigmoid polyp MICROSCOPIC DIAGNOSIS A. Transverse colon polyp, biopsy: Tubular adenoma. B. Rectosigmoid polyp, biopsy: Tubular adenoma. ERICK:dwayne 12/07/18 MICROSCOPIC DESCRIPTION Slides are reviewed. GROSS DESCRIPTION A - Received in fixative is one container labeled with the patient's name and designated transverse colon polyp. The specimen consists of one irregular fragment of light carty soft tissue that measures 0.4 x 0.4 x 0.1 cm. The specimen is totally submitted in one cassette. B - Received in fixative is one container labeled with the patient's name and designated rectosigmoid polyp. The specimen consists of a piece of pedunculated carty-pink polyp measuring 0.5 x 0.5 x 0.3 cm. The pedicle measures 1 cm in length and 0.3 cm in diameter. The specimen is totally submitted in one cassette. / ERICK:dwayne 12/06/18 TC:1 CPT: 14450 x2
== END ==
PROVIDERS: Family Provider Internal Medicine; PCP Internal Medicine; Referring Provider Surgery; Visit Provider Surgery
DX: Z12.11 Encounter for screening for malignant neoplasm of colon (principal); Z86.010 Personal history of colon polyps
CPT/HCPCS: 88305

== ENCOUNTER → 2019-01-04 08:54 | Outpatient (CLI) | payer OTHER, SELFPAY ==
[2019-01-04 10:39] LABS: Hematocrit 45.9 % (40-54); Hemoglobin 14.6 g/dL (13.0-16.5); Mean Corp Hgb Conc 31.8 g/dL (32-36); Mean Corpuscular Hgb 30.8 pg (27.0-32.0); Mean Corpuscular Volume 96.8 fL (80-94); Mean Platelet Vol. 10.5 fl (6.2-12.0); Platelet Count 345 K/mm3 (150-450); RBC Distribution Width CV 14.1 % (11.6-14.6); RBC Distribution Width SD 49.7 fl (35.1-43.9); Red Blood Count 4.74 M/mm3 (4.6-6.2); White Blood Count 9.2 K/mm3 (4.4-11.0)
[2019-01-04 11:02] LABS: ALB/GLOB Ratio 0.9 RATIO (0.9-2.4); AST(SGOT) 17 U/L (15-37); Alanine Aminotransfer ALT/SGPT 22 U/L (16-61); Albumin, Serum 3.8 g/dL (3.2-5.0); Alkaline Phosphatase 58 U/L (45-117); Anion Gap 5 (5-15); BUN 17 mg/dL (7-18); BUN/Creat Ratio 13.6 RATIO (10-20); Chloride 106 mmol/L (98-107); Cholesterol 159 mg/dL (200); Creatinine, Serum 1.25 mg/dL (0.70-1.30); EST Glomerular Filtration Rate 60 mL/min (>60); Est Glom Filt Rate - Afr Amer 73 mL/min (>60); Globulin 4.1 g/dL (2.2-4.2); Glucose 102 mg/dL (74-106); High Density Lipoprotein 42 mg/dL; Potassium 4.1 mmol/L (3.5-5.1); Protein, Total 7.9 g/dL (6.4-8.2); Sodium Level 142 mmol/L (136-145); Triglycerides 115 mg/dL; Very Low Density Lipoprotein 23 mg/dL (5-40)
[2019-01-04 11:10] LABS: Vitamin D,25 Hydroxy 21.8 ng/mL (29.95-100.01)
== END ==
PROVIDERS: Family Provider Internal Medicine; PCP Internal Medicine; Referring Provider Internal Medicine; Visit Provider Internal Medicine
DX: I10 Essential (primary) hypertension (principal); E55.9 Vitamin D deficiency, unspecified; E78.2 Mixed hyperlipidemia
CPT/HCPCS: 36415; 80053; 80061; 82306; 85027

== ENCOUNTER → 2019-04-02 09:43 | Outpatient (CLI) | payer OTHER, SELFPAY ==
--- NOTE | 2019-04-02 09:47 | CDU_ITS ---
Reason For Study: AMAUROSIS FUGAX Rt. Velocities/BP Lt. Velocities/BP Prox CCA 193.8/16.0 cm/sec. Prox CCA 197.6/24.1 cm/sec. Mid CCA 107.3/10.8 cm/sec. Mid CCA 168.1/15.3 cm/sec. Dist CCA 89.2/10.6 cm/sec. Dist CCA 111.7/17.3 cm/sec. Prox ICA 116.7/23.6 cm/sec. Prox ICA 138.0/17.3 cm/sec. Mid ICA 102.6/16.8 cm/sec. Mid ICA 151.2/23.9 cm/sec. Dist ICA 104.5/20.5 cm/sec. Dist ICA 103.0/23.9 cm/sec. Rt. ICA/CCA = 116.7/107.3=1.1. Lt. ICA/CCA = 151.2/168.1=0.9. Prox ECA 132.6/6.6 cm/sec. Prox ECA 151.2/0.0 cm/sec. Rt. Vert. 69.8/16.8 cm/sec. Lt. Vert. 55.9/8.7 cm/sec. Right Extracranial There is homogeneous, smooth atherosclerotic plaque noted in the right common carotid artery. There is heterogeneous, smooth atherosclerotic plaque noted in the right internal carotid artery. There is no significant atherosclerotic plaque noted in the right external carotid artery. Antegrade flow is noted in the right vertebral artery. There is heterogeneous, irregular atherosclerotic plaque noted in the right bulb. Left Extracranial There is homogeneous, smooth atherosclerotic plaque noted in the left common carotid artery. There is homogeneous, smooth atherosclerotic plaque noted in the left internal carotid artery. There is heterogeneous, irregular atherosclerotic plaque noted in the left external carotid artery. Antegrade flow is noted in the left vertebral artery. There is heterogeneous, irregular atherosclerotic plaque noted in the left bulb. Procedure Carotid Duplex [id number]. Exam performed in department. Interpretation Summary Mild (<50%) stenosis right extracranial internal carotid. Moderate (50-69%) stenosis left extracranial internal carotid. Flow within the vertebral arteries is antegrade bilaterally. Ordering Physician: Deanna Toney Referring Physician: Esther Costello Performed By: Terri Dunaway, YECENIA, RVT
--- NOTE | 2019-04-02 10:32 | MRI_ITS ---
STUDY: MRI BRAIN WITH AND WITHOUT CONTRAST REASON FOR EXAM: Male, 73 years old. expressive aphasia, dysphagia, ??tia TECHNIQUE: Standardized multiplanar fat and water weighted pulse sequences were obtained. IV DOTAREM 20CC was administered for the contrast portion of the examination. Mild motion artifact is present on several sequences. COMPARISON: None. FINDINGS: There is mild cerebral atrophy with widening of the extra-axial spaces and ventricular dilatation. Normal white matter tracts of the supratentorial brain. There is no evidence for recent intracranial ischemia or other cause of cytotoxic edema on diffusion weighted imaging (DWI). Normal T2* images of the brain without demonstrated susceptibility artifact. There is no demonstrated hemosiderin stain. Normal bilateral basal ganglia. Normal thalami. There is no extra-axial fluid accumulation. Normal flow voids within the major intracranial circulation suggesting patency by spin echo criteria. Normal venous enhancement. There is no enhancing intra-axial or extra-axial abnormality. Normal sella turcica, pituitary gland, infundibular stalk, optic chiasm and hypothalamus. Normal tectal plate and pineal gland. Normal midbrain, stefanie and medulla. Normal cerebellum. Normal basal cisterns. Normal bilateral temporal bones. Normal bilateral internal auditory canals. No demonstrated orbital abnormality, within the constraints of a routine brain study. Normal visualized paranasal sinuses. Severe right mastoiditis is present. Normal calvarium and skull base. Normal visualized soft tissue structures. Normal visualized upper cervical spine. MRI/Brain W/WO Contrast IMPRESSION: 1. Unremarkable unenhanced and enhanced MRI of the brain. 2. Severe right mastoiditis. Electronically Signed: Rich Powers MD at 18:06 EST , Service support ,
[2019-04-02 12:20] LABS: EGFR FINGERSTICK > 60.0000 mL/min (>60)
== END ==
PROVIDERS: PCP Internal Medicine; Referring Provider Clinical Nurse Specialist; Visit Provider Clinical Nurse Specialist
DX: R47.01 Aphasia (principal); R47.02 Dysphasia; G45.8 Other transient cerebral ischemic attacks and related syndromes; G45.3 Amaurosis fugax
CPT/HCPCS: 70553; 93880; A9575

== ENCOUNTER → 2019-05-09 14:02 | Outpatient (CLI) | payer OTHER, SELFPAY ==
--- NOTE | 2019-05-09 14:05 | CT_ITS ---
STUDY: CTA NECK WITH CONTRAST REASON FOR EXAM: Male, 73 years old. APHASIA 1 MONTH AGO, NOW RESOLVED RADIATION DOSAGE (If Supplied By Facility): CTDIvol = ( 21.70 ) mGy, DLP = ( 614.67 ) mGycm TECHNIQUE: CT angiography with multi-detector data acquisition was performed from the aortic arch to the skull base following intravenous administration of 100 ML OPTIRAY. MIP images were reconstructed from the axial data set. Post-processing of the angiographic images was performed, with multiplanar reformation and 3D reconstruction. Individualized dose optimization techniques were used for this CT. COMPARISON: None. FINDINGS: Mild in homogeneity of the left lobe of the thyroid gland. AORTIC ARCH: There is atherosclerotic calcific plaque formation of the aortic arch and great vessels arising from the aortic arch, without a hemodynamically significant stenosis. There is a normal origin of the brachiocephalic, left common carotid, and left subclavian arteries. RIGHT CAROTID ARTERIES: Normal right common carotid artery (CCA). Normal right common carotid bulb. There is mild atherosclerotic plaque formation of the origin of the right internal carotid artery with less than 50% cross sectional diameter stenosis. Normal visualized cervical portion of the right internal carotid artery. Normal origin of the right external carotid artery (ECA). LEFT CAROTID ARTERIES: Normal left common carotid artery (CCA). Normal left common carotid bulb. There is moderate atherosclerotic plaque formation of the origin of the left internal carotid artery with an estimated stenosis of 50-69% stenosis. Normal visualized cervical portion of the left internal carotid artery. Normal origin of the left external carotid artery (ECA). VERTEBRAL ARTERIES: Normal bilateral vertebral arteries. CT/CTA Neck W/WO Contrast IMPRESSION: Less than 50% narrowing at the origin of the right internal carotid artery. 50-69% narrowing at the origin of the left internal carotid artery. Electronically Signed: Ricardo Guardado, at 14:42 EDT , Service support ,
[2019-05-09 14:16] LABS: EGFR FINGERSTICK > 60.0000 mL/min (>60)
== END ==
PROVIDERS: PCP Internal Medicine; Referring Provider Surgery Vascular Surgery; Visit Provider Surgery Vascular Surgery
DX: R47.01 Aphasia (principal); I65.23 Occlusion and stenosis of bilateral carotid arteries
CPT/HCPCS: 70498; Q9967

== ENCOUNTER → 2019-07-10 09:13 | Outpatient (CLI) | payer OTHER, SELFPAY ==
[2015-11-12 17:00] VITALS: BMI 31.8
[2019-07-10 10:50] LABS: Cholesterol 153 mg/dL (200); Creatinine, Serum 1.22 mg/dL (0.70-1.30); EST Glomerular Filtration Rate 62 mL/min (>60); Est Glom Filt Rate - Afr Amer 75 mL/min (>60); High Density Lipoprotein 43 mg/dL; Triglycerides 126 mg/dL; Very Low Density Lipoprotein 25 mg/dL (5-40)
== END ==
PROVIDERS: PCP Internal Medicine; Referring Provider Internal Medicine; Visit Provider Internal Medicine
DX: I10 Essential (primary) hypertension (principal); I65.23 Occlusion and stenosis of bilateral carotid arteries
CPT/HCPCS: 36415; 80061; 82565

== ENCOUNTER 2019-12-17 06:01 | Day surgery (SDC) | payer OTHER, SELFPAY ==
[2019-09-27 14:30] VITALS: BMI 31.8
--- NOTE | 2019-12-16 13:46 | HP.PCM_ITS ---
History and Physical Date of Admission: 12/17/19 HISTORY OF PRESENT ILLNESS 74 year old male presents for evaluation for TBSE. 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 These are in addition to the ones he was evaluated for in September and is scheduled for excision next week namely on the central forehead and right lateral forehead by the hairline. The new lesions have increased in size and have developed irregular borders. He denies fever. He denies trauma. He denies recent infection. He denies bleeding. He presents at this time for further evaluation and treatment to see if they need excision which can be done at the same time as his other lesions to be excised next week. PAST MEDICAL HISTORY Neoplasm of skin of lower leg Neoplasm of unspecified behavior of bone, soft tissue, and skin Neoplasm of skin of forehead Neoplasm of skin of right lateral forehead High cholesterol High blood pressure PAST SURGICAL HISTORY knee joint replacement ALLERGIES Penicillins [PCN] MEDICATIONS Atorvastatin Calcium [Lipitor] Citalopram [Celexa] Hydrochlorothiazide [Hctz] Aspirin E.C. [Ecotrin] FAMILY HISTORY Other - Heart disease, Lung cancer SOCIAL HISTORY Smoking Status: Former smoker alcohol intake: current substance use type: does not use REVIEW OF SYSTEMS General - Denies fever, fatigue, and weight loss. Eyes - Denies cataracts. Has glaucoma. ENT - Denies nasal congestion and sore throat. Endocrine - Denies excessive thirst and urination. Skin - Denies skin cancer. Has enlarging lesions left postauricular area and right medial leg. Has enlarging lesions central forehead and right lateral forehead by the hairline. Musculoskeletal - Denies joint pain, joint stiffness, weakness of muscles and joints, back pain, and arthritis. Neuro - Denies headaches. Cardiovascular - Denies chest pain, fatigue, and shortness of breath with exertion. Psych - Denies anxiety. Has depression. Respiratory - Denies chronic cough and shortness of breath. Has sleep apnea. Patient is a smoker. Gastrointestinal - Denies nausea, vomiting, diarrhea, and constipation. Hematologic - Denies abnormal bruising and bleeding. Genitourinary - Denies hematuria and urinary frequency. PHYSICAL EXAMINATION General - Alert and oriented. HEENT - PERRL. EOMI. Throat is clear. On the central forehead is a lesion that measures 1.2 cm. Has irregular borders. Is slightly raised in configuration. No ulceration. Lesion is nontender. Clinically looks actinic in nature. On the left postauricular area near the hairline is a lesion that measures 6 mm. Has irregular borders. Is slightly raised in configuration. No ulceration. Lesion is nontender. On the right lateral forehead by the hairline is a lesion that measures 4 mm. The lower half of the lesion is darkly pigmented. Has irregular borders. Lesion is flat. No ulceration. Lesion is nontender. Neck - Supple and non-tender. No cervical adenopathy. No suspicious lesions noted. Lungs- Clear to auscultation. Heart - Regular rate and rhythm. Abdomen - Soft and non distended. Extremities - FROM. No axillary adenopathy. Radial pulses are palpable. On the right medial leg is a pigmented lesion that measures 6 mm. It is darkly pigmented. It is slightly raised in configuration. Has irregular borders. No ulceration. Lesion is nontender. Neuro - CN II-XII grossly intact. Psych - Normal mood and affect. ASSESSMENT 1. 6 mm lesion left post auricular in his hairline. 2. 6 mm darkly pigmented lesion on right medial leg. 3. 1.2 cm lesion central forehead, clinically actinic in nature. 4. 4 mm pigmented lesion right lateral forehead by the hairline. 5. Smoker. PLAN Recommend excision of these new enlarging lesions left postauricular area near the hairline and right medial leg and send them to Pathology for analysis to rule out carcinoma. If carcinoma is present, then further excision will be done with skin graft or skin flap reconstruction. They can be excised at the same time as the lesions central forehead and right lateral forehead by the hairline which is scheduled for next week, 12/17/19. If the central forehead lesion is an actinic lesion, then the patient would want to proceed with further excision and skin flap reconstruction rather than proceed postoperatively with Aldara therapy. The right lateral forehead lesion and the right medial leg lesion will be full thickness and sent for permanent Pathology because of the concern for possible melanoma. A full thickness excision gives a more accurate thickness than a shave excision that has to proceed to a completion excision if melanoma is present. Surgery will be done on an outpatient basis under local anesthesia and IV sedation on an outpatient basis. Patient was informed of the risks and complications of the procedure including alternatives to surgery. These were discussed with the patient personally. Patient voices understanding and wishes to proceed. Some of the risks and complications were included in a form from the [employer]. Encouraged patient to stop smoking as it may have deleterious effects on wound healing. We discussed the current risks associated with COVID-19. While it is understood that there is a community spread of COVID-19, the risk of nurys COVID-19 while at [facility] ([facility]) is very low; however, the risk cannot be completely mitigated because of the community spread of the disease. We discussed in detail the risk of exposure to and/or potential harm posed by the COVID-19 virus with having a surgery/procedure at this time versus the risk of delaying the surgery/procedure. It is not possible to know either the risk of delaying the surgery or procedure or chance of getting an infection with perfect accuracy, but a joint decision was made to proceed at this time with the scheduled surgery/procedure as indicated on the consent form. Patient was n otified that we will need to comply with any screening or testing [facility] wishes to perform or that surgery may be delayed for any positive results. Discussed with the patient that I was tested for COVID-19 on 08/23/19 which was negative and on 09/06/19 which was negative and on 09/20/19 which was negative and on 10/04/19 which was negative and on 10/18/19 which was negative and on 11/08/19 which was negative and on 11/29/19 which was negative. My testing regimen at this time is to be COVID-19 tested every 2 weeks or so. Procedure Criteria Procedure Type: Elective COVID Risk Discussion: The surgeon/proceduralist and patient have discussed in detail the risk of exposure to and/or potential harm posed by the COVID-19 virus with having a surgery/procedure at this time versus the risk of delaying the surgery/procedure. It is not possible to know either the risk of delaying the surgery or procedure or chance of getting an infection with perfect accuracy, but a joint decision was made between the patient and the surgeon/proceduralist to proceed at this time with the scheduled surgery/procedure as indicated on the consent form.
--- NOTE | 2019-12-17 | LES_PTH ---
PATIENT: ROSIE BABIN LOC: [facility] U#:[id number] AGE/SX: 74/M ROOM: RE12/17/[address]: Dr. Fred Dee MD : 1945 BED: DIS: 12/17/2019 SPEC #: [id number] RECD: 12/17/19 07:59 STATUS: BAIRON WAN #: [id number] MARKY: 12/17/19 00:[address]: Fred Dee DEPT: SURGICAL PATHOLOGY RECD BY: Sabi Huang ENTERED: 12/17/19 08:29 SP TYPE: Lesion OTHR DR: Dr. Esther Costello MD Tissues: A - Skin of forehead B - Auricular region C - Skin of leg, NOS D - Skin of forehead Procedures: Frozen Section (charge) Surgery Specimen Level IV HEADER OPERATION: Excision lesion central forehead with frozen section PRE-OP DIAGNOSIS: 6 mm lesion left post auricular in hairline; 6 mm darkly pigmented lesion right medial leg TISSUE SUBMITTED: A - Central forehead, FS at 0755, B - Left post auricular, FS at 0755, C - Right medial leg lesion, suture at 12 o'clock, D - Right lateral forehead lesion, suture at 12 o'clock FROZEN SECTION DIAGNOSIS A. Central forehead lesion, shave biopsy: Negative for carcinoma. B. Left post auricular lesion, shave biopsy: Negative for carcinoma. ERICK:dwayne 12/17/19 MICROSCOPIC DIAGNOSIS A. Central forehead lesion, shave biopsy: Seborrheic keratosis and sebaceous gland hyperplasia. Chronic inflammation. Negative for carcinoma. B. Left post auricular lesion, shave biopsy: Seborrheic keratosis. Negative for carcinoma. C. Medial leg lesion, excisional biopsy: Seborrheic keratosis. Negative for carcinoma. D. Right lateral forehead lesion, excisional biopsy: Mild actinic keratosis and solar elastosis. Negative for carcinoma. ERICK:dwayne 12/18/19 COMMENT Case has been reviewed in consultation with Dr. Brooks who concurs with the above diagnosis. IDC:AM MICROSCOPIC DESCRIPTION Slides are reviewed. GROSS DESCRIPTION A - Received fresh for frozen section diagnosis labeled with the patient's name is a specimen designated central forehead. The specimen consists of a shave biopsy of carty-brown skin measuring 1.5 x 1.2 x 0.1 cm. The specimen is inked, serially sectioned and submitted entirely for frozen section diagnosis in one cassette. / : 12/17/19 B - Received fresh for frozen section diagnosis labeled with the patient's name is a specimen designated left post auricular lesion. The specimen consists of a piece of carty-white skin measuring 0.8 x 0.7 x 0.1 cm. The specimen is inked, bisected and submitted entirely for frozen section diagnosis in one cassette. / : 12/17/19 C - Received in fixative is one container labeled with the patient's name and designated medial leg lesion. The specimen consists of a piece of carty-white skin ellipse measuring 2 x 0.8 cm and up to 0.3 cm in thickness. There is an irregular brownish-black lesion on the surface measuring 0.7 x 0.7 cm. The specimen is oriented by a suture at 12 o'clock tip. The specimen is inked as follows: 12 o'clock tip - yellow, 6 o'clock tip - green, 3 o'clock margin - black and 9 o'clock margin - blue. The specimen is inked, serially sectioned and submitted entirely in one cassette. / : 12/17/19 D - Received in fixative is one container labeled with the patient's name and designated right lateral forehead lesion. The specimen consists of a piece of carty-white skin ellipse measuring 1.2 x 0.3 cm and up to 0.2 cm in thickness. The specimen is oriented by a suture at 12 o'clock. The specimen is inked as follows: 12 o'clock tip - yellow, 6 o'clock tip - green, 3 o'clock margin - black and 9 o'clock margin - blue. The entire specimen is submitted in one cassette. It will be serially sectioned at the tie of embedding. / ERICK:dwayne 12/17/19 TC:1 CPT: 79906 x4, 47428 x2
[2019-12-17 06:28] VITALS: BP 150/77; PULSE 55; RESP 16; TEMP 36.7; O2SAT 98; BMI 31.1
[2019-12-17] MEDS: Lactated Ringers 1,000 ML 100 ML IV (06:51)
[2019-12-17] MEDS: Silver Nitrate (BKC) 1 EACH (08:16)
[2019-12-17] MEDS: Mupirocin Ointment 22gm Tube 1 APPLIC (08:19)
--- NOTE | 2019-12-17 08:26 | OP.PCM_ITS ---
Report of Operation Date of Procedure: 12/17/19 Pre-Operative Diagnosis: 1. 6 mm lesion left post auricular in his hairline. 2. 6 mm darkly pigmented lesion on right medial leg. 3. 1.2 cm lesion central forehead, clinically actinic in nature. 4. 4 mm pigmented lesion right lateral forehead by the hairline. 5. Smoker. Post-Operative Diagnosis: Same. Surgery/Procedure Performed:: 1. Intradermal excision 6 mm lesion left post auricular in his hairline. 2. Excision 6 mm darkly pigmented lesion right medial leg with 2.5 cm layered closure. 3. Intradermal excision 1.2 cm lesion central forehead. 4. Excision 4 mm pigmented lesion right lateral forehead by the hairline with 1.5 cm layered closure. Description of Surgical Findings:: 74 year old male presents for evaluation for TBSE. 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 These are in addition to the ones he was evaluated for in September and is scheduled for excision next week namely on the central forehead and right lateral forehead by the hairline. The new lesions have increased in size and have developed irregular borders. He denies fever. He denies trauma. He denies recent infection. He denies bleeding. He presents at this time for further evaluation and treatment to see if they need excision which can be done at the same time as his other lesions to be excised next week. Patient was informed of the risks and complications of the procedure including alternatives to surgery. These were discussed with the patient personally. Patient voices understanding and wishes to proceed. Some of the risks and complications were included in a form from the [employer]. Encouraged patient to stop smoking as it may have deleterious effects on wound healing. Frozen section central forehead - negative for carcinoma. Frozen section left postauricular area - negative for carcinoma. 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 Lesion left post auricular in his hairline to Pathology as a frozen section. 2. Pigmented lesion on right medial leg to Pathology. 3. Lesion central forehead to Pathology as a frozen section. 4. Pigmented lesion right lateral forehead by the hairline to Pathology. Drains: None. Estimated Blood Loss (mL): 5 ml. Description of Procedure: Patient was taken to OR in supine position and was placed under general anesthesia. The face including forehead and left ear and right medial leg were prepped and draped in the usual fashion. SCD's were placed for DVT prophylaxis. Perioperative antibiotics were given intravenously. For the procedure, I wore and N95 mask and wore proper eyewear protection. Using xylocaine with epinephrine, the lesions central forehead, right lateral forehead by hairline, left postauricular area, and right medial leg were infiltrated. After waiting 5 minutes for the anesthetic to take effect, I excised the lesions central forehead and left postauricular area in an intradermal fashion and sent to Pathology as a frozen section for analysis to rule out carcinoma. Frozen section showed that both lesions showed no evidence of carcinoma. Hemostasis was obtained with gentle pressure and silver nitrate chemical cauterization. This was followed by antibiotic ointment. I excised the pigmented lesion right lateral forehead by hairline in an oblique elliptical fashion down into the subcutaneous tissue. A suture was marked at the 12 oclock position for pathology orientation. The lesion was sent to Pathology for analysis to rule out carcinoma. Hemostasis was obtained with electrocautery. The wound was closed in a layered fashion with 5-0 Monocryl interrupted sutures for the deep dermis and subcutaneous tissue. The skin was approximated with 6-0 Prolene simple interrupted sutures. Steri-strips were applied followed by antibiotic ointment. The pigmented lesion was excised with a 1 mm margin in all directions thus making it a 6 mm excision and 1.5 cm layered closure. I then excised the pigmented lesion right medial leg in a longitudinal elliptical fashion down into the subcutaneous tissue. A suture was marked at the 12 oclock position for pathology orientation. The lesion was sent to [facility] thology for analysis to rule out carcinoma. Hemostasis was obtained with electrocautery. The wound was closed in a layered fashion with 4-0 Monocryl interrupted sutures for the deep dermis and subcutaneous tissue. The skin was approximated with 4-0 Prolene simple interrupted sutures. Antibiotic ointment was applied to the suture line followed by gauze dressing and a compression malick wrap. The pigmented lesion was excised with a 1 mm margin in all directions thus making it an 8 mm excision and 2.5 cm layered closure. Patient tolerated the procedure well and was sent to PACU in satisfactory condition. Patient will be sent home on antibiotics and pain medication. He will keep his head elevated during the initial postoperative period. Patient will followup in a week for a wound check and for discussion of the pathology report and for removal of the sutures on the right lateral forehead. The right medial leg sutures will be removed in 2 weeks. Grafts/Implants Used: None. - Complications None. - Admit VTE Documentation VTE Present on Admission: No VTE Mechan Device Prophylaxis: SCD's VTE Pharm Prophylaxis ordered?: No Surgery Charges CPT - 30514 ICD-10 - D49.2, F17.200 21823 D49.2, F17.200 83326 D49.2, F17.200 05362 D49.2, F17.200 28805 D49.2, F17.200 92279 D49.2, F17.200
[2019-12-17 08:35] VITALS: BP 127/66; BP 150/77; PULSE 54; RESP 16; TEMP 36.4; O2SAT 97
--- NOTE | 2019-12-17 08:36 | DCINST_ITS ---
You will use the following diet at home:: No restrictions Discharge Activity: May not drive while taking narcotic pain medications., May Shower - in two days., - - no heavy lifting. elevate head. elevate right leg when sitting. patient may ambulate. minimize standing. May shower in (days): 2 May resume sexual activity in: No Restrictions Weight Bearing Status: Weight bearing as tolerated Lifting Restrictions: 20 lbs. Keep extremity elevated above heart level: Right Leg, - - elevate head. Call your doctor if your incision/area has: Continuous Slow Oozing, Sudden Increased Bleeding, Increased Pain/ Swelling, Increased Redness, Foul Smelling Discharge, Swelling at the incision site Call your doctor if you observe: Fever of 101 or Higher, Coldness, Increased Pain, Shortness of breath, Chest pain, Calf discomfort, Uncontrolled pain Suture Line Care: - - apply antibiotic ointment to suture line daily. Change Dressing in (Days):: 2 - may remove malick wrap when showering, then rewrap the leg after the shower. Cleanse incision/area with: - - may get incisions wet in the shower in two days. Allergies/Adverse Reactions: Allergies Penicillins [PCN] Allergy (Verified 12/17/19 06:25) Hives Medications to take at Discharge Atorvastatin Calcium [Lipitor] 10 mg PO QHS 10/29/15 Citalopram [Celexa] 40 mg PO DAILY 10/29/15 Hydrochlorothiazide [Hctz] 25 mg PO DAILY 10/29/15 Clindamycin HCl [Cleocin] 300 mg PO TID #12 cap 12/17/19 Lactobacillus Acidophilus/Fos [Acidophilus Probiotic Tablet] 1 ea PO BID #20 tab 12/17/19 Oxycodone HCl/Acetaminophen [Percocet 5/325] 1 tablet PO Q6H PRN PRN 5 Days #20 tablet 12/17/19 The following prescriptions were given: Lactobacillus Acidophilus/Fos [Acidophilus Probiotic Tablet] 1 ea PO BID #20 tab Transmission Status: Pending to [facility] Clindamycin HCl [Cleocin] 300 mg PO TID #12 cap Transmission Status: Pending to [facility] Oxycodone HCl/Acetaminophen [Percocet 5/325] 1 tablet PO Q6H PRN PRN 5 Days #20 tablet PRN Reason: Pain Score 6-10 Transmission Status: Sent to [facility] Primary Care Physician: Esther Costello MD [Primary Care Provider] - Test Results: Test results from this visit will be discussed in further detail at your follow- up appointment, if applicable. Please Follow Up With: Fred Dee MD When: one week. call [phone] for appt. Proposed Discharge Date: 12/17/19
[2019-12-17 08:45] VITALS: BP 131/67; BP 150/77; PULSE 58; RESP 16; O2SAT 95
[2019-12-17 08:53] VITALS: BP 140/68; BP 150/77; PULSE 55; RESP 16; TEMP 36.7; O2SAT 97
[2019-12-17 09:36] VITALS: BP 134/65; BP 150/77; PULSE 55; RESP 16; TEMP 36.4; O2SAT 96
== END 2019-12-17 09:38 | disposition home or self-care (01) ==
LOC: SDC 06:01 → AC 06:01
PROVIDERS: Anesthesiology; PCP Internal Medicine; Referring Provider Surgery; Visit Provider Surgery
PROC: (CPT 11312; principal; 2019-12-17 07:20)
DX: D49.2 Neoplasm of unspecified behavior of bone, soft tissue, and skin (principal); I10 Essential (primary) hypertension; E78.00 Pure hypercholesterolemia, unspecified; G47.30 Sleep apnea, unspecified; F41.8 Other specified anxiety disorders; F32.9 Major depressive disorder, single episode, unspecified; Z88.0 Allergy status to penicillin; Z79.82 Long term (current) use of aspirin; Z79.899 Other long term (current) drug therapy; Z87.891 Personal history of nicotine dependence; Z20.828 Contact with and (suspected) exposure to other viral communicable diseases
CPT/HCPCS: 00300; 11312; 11401; 11441; 12031; 12051; 87635; 88304; 88305; 88331; C9803; J7120; J2405; U0003

== ENCOUNTER → 2020-05-21 13:14 | Outpatient (CLI) | payer OTHER, SELFPAY ==
[2020-05-21 13:38] LABS: Hematocrit 46.2 % (40-54); Hemoglobin 15.1 g/dL (13.0-16.5); Mean Corp Hgb Conc 32.7 g/dL (32-36); Mean Corpuscular Hgb 31.2 pg (27.0-32.0); Mean Corpuscular Volume 95.5 fL (80-94); Mean Platelet Vol. 10.4 fl (6.2-12.0); Platelet Count 315 K/mm3 (150-450); RBC Distribution Width CV 13.5 % (11.6-14.6); RBC Distribution Width SD 47.5 fl (35.1-43.9); Red Blood Count 4.84 M/mm3 (4.6-6.2); White Blood Count 10.4 K/mm3 (4.4-11.0)
[2020-05-21 14:05] LABS: ALB/GLOB Ratio 1.1 RATIO (0.9-2.4); AST(SGOT) 13 U/L (15-37); Alanine Aminotransfer ALT/SGPT 25 U/L (16-61); Albumin, Serum 4.1 g/dL (3.2-5.0); Alkaline Phosphatase 57 U/L (45-117); Anion Gap 2 (5-15); BUN 16 mg/dL (7-18); BUN/Creat Ratio 13.3 RATIO (10-20); Calcium,Total 9.6 mg/dL (8.5-10.1); Chloride 104 mmol/L (98-107); Cholesterol 167 mg/dL (200); EST Glomerular Filtration Rate 63 mL/min (>60); Est Glom Filt Rate - Afr Amer 76 mL/min (>60); Globulin 3.8 g/dL (2.2-4.2); Glucose 93 mg/dL (74-106); High Density Lipoprotein 55 mg/dL; Potassium 4.4 mmol/L (3.5-5.1); Protein, Total 7.9 g/dL (6.4-8.2); Sodium Level 138 mmol/L (136-145); Triglycerides 101 mg/dL; Very Low Density Lipoprotein 20 mg/dL (5-40)
[2020-05-21 14:06] LABS: Vitamin D,25 Hydroxy 20.9 ng/mL
== END ==
PROVIDERS: PCP Internal Medicine; Referring Provider Internal Medicine; Visit Provider Internal Medicine
DX: E78.2 Mixed hyperlipidemia (principal); E55.9 Vitamin D deficiency, unspecified; I10 Essential (primary) hypertension; Z79.899 Other long term (current) drug therapy
CPT/HCPCS: 36415; 80053; 80061; 82306; 85027

== ENCOUNTER 2020-06-11 12:00 | Outpatient (RCR) | payer OTHER, SELFPAY ==
--- NOTE | 2020-05-28 13:13 | HP.PTEVAL_ITS ---
Patient's Visit Information ROSIE BABIN is a 74 year old M referred to Physical Therapy by Oliver Holland PA-C with a diagnosis of LBP. Date of Evaluation: 05/28/20 Physical Therapist: Damir Bo, PT, ATC - Visit Plan Frequency: 1x/Week Duration: 2-3 weeks Plan: Assess benefit of REIL on L/S. Then inccoporate HEP of L/S stab ex's in 1- 2 visits - Subjective Pt reports he was pulled down by his dog while walking it approximately 4-5 times over the past 4 months. Pt reports this has resulted in him having mild LBP with occasional L LE radiculopathy that extends down to his mid calf region. Pt notes he has had xrays on his LB and L hip which revealed degenerative changes throughout. No sleep difficulty secondary to pain. Pt reports he feels great when he is walking upright, but notes when he walks bent forward, he feels LBP and L LE discomfort. prolonged sitting also increases his pain. Pt reports he feels overall weak at this time. Pain is intermittent in nature. 0/10 pain at rest, 7/10 at worst - Pain L LE Pain Intensity (Out of 10): 0 Pain Intensity Range: 7 - Objective Neuro: B LE sensation is WNL to lgiht touch. B achilles reflex= 1/3. MMT: L hip flex and R knee flex= 4-/5. All other B LE MMT. 4+/5 throughout. L/S ROM: Pt is minimally limited in all planes. Repeated movements: RFIS 10x2 better. TAVIA 10x2 better. REIL much better. Special tests: No positive this day - Goals Goal 1:: I with HEP 2-3 visits Goal Time Frame: 2 Weeks - Rehabilitation Potential Physical Therapy Diagnosis: Pt has LBP, LE tightness, and L LE radiculopathy secondary to deg changes in the L/S Rehabilitation Potential: Good - Anticipated Interventions Patient/Client Instruction: Educate patient on: Condition, Plan of Care For the Purpose of:: To improve self management Therapeutic Exercise to Include: Strength training, Endurance training, Postural training, Flexibilty training, Dynamic Lumbar Stabilization For the Purpose of:: To decrease pain, To increase ROM, To improve muscle performance and motor function Thank you for the opportunity to evaluate your patient. For Medicare and Medicare HMO plans, please review the plan of care and approve it. It will need to be FAXED BACK to us at [phone] for Medicare purposes. For Medicare only, by signing this I certify the plan of care. Please let me know if there are questions or concerns regarding this plan of care. Physician Signature: Date:
--- NOTE | 2020-06-11 13:08 | HP.PTREVAL ---
Oliver Holland PA-C, It has been my pleasure to treat ROSIE BABIN over the last 2 visits for LBP. Please see the progress note below for an update on the physical therapy plan of care! Subjective: I am so much better now Objective/Function: Pt now I with HEP Plan Plan: Re-assess or discharge in 1 month Goals Goal 1:: I with HEP 2-3 visits Goal Time Frame: 2 Weeks Goal Progress: Goal Met Anticipated Interventions Patient/Client Instruction: Educate patient on: Condition, Plan of Care For the Purpose of:: To improve self management Therapeutic Exercise to Include: Strength training, Endurance training, Postural training, Flexibilty training, Dynamic Lumbar Stabilization For the Purpose of:: To decrease pain, To increase ROM, To improve muscle performance and motor function Please do not hesitate to contact me at [phone] by phone or if you have questions or concerns regarding this new plan of care! Sincerely, Damir Bo, PT, ATC
--- NOTE | 2020-09-15 14:10 | HP.PT.NRP ---
ROSIE BABIN was seen in my office for initial evaluation on 05/28/20. The following Plan of Care was established for this patient: Initial Frequency: 1x/Week Initial Duration: 2-3 weeks Patient/Client Instruction: Educate patient on: Condition, Plan of Care For the Purpose of:: To improve self management Therapeutic Exercise to Include: Strength training, Endurance training, Postural training, Flexibilty training, Dynamic Lumbar Stabilization For the Purpose of:: To decrease pain, To increase ROM, To improve muscle performance and motor function This patient was last seen in our office . Pertinent comments regarding their Physical therapy will appear below: Pt was treated for 2 PT visits for LBP through the date of 06/11/2020. Pt has not returned through this date and is discharged at this time. At this point I will be discontinuing this patient from physical therapy. I would be happy to see this patient again in the future if found appropriate by the physician. Thank you! Damir Bo, PT, ATC Balance/Gait/Functional tests - Balance/Special Test Scores Oswestry Low Back Score: 3
== END 2020-06-11 19:00 | disposition home or self-care (01) ==
LOC: PT 12:00
PROVIDERS: PCP Internal Medicine; Referring Provider Physician Assistant Surgical; Visit Provider Physician Assistant Surgical
DX: M51.36 Other intervertebral disc degeneration, lumbar region (principal); M48.07 Spinal stenosis, lumbosacral region; M16.12 Unilateral primary osteoarthritis, left hip
CPT/HCPCS: 97110; 97161

== ENCOUNTER → 2020-10-01 09:53 | Outpatient (CLI) | payer OTHER, SELFPAY ==
[2020-06-26 14:11] VITALS: BMI 31.1
--- NOTE | 2020-10-01 09:56 | CDU_ITS ---
Reason For Study: STENOSIS Rt. Velocities/BP Lt. Velocities/BP Prox CCA 196.0/13.8 cm/sec. Prox CCA 160.0/19.4 cm/sec. Mid CCA 139.6/16.7 cm/sec. Mid CCA 157.6/18.8 cm/sec. Dist CCA 87.5/12.6 cm/sec. Dist CCA 118.0/15.7 cm/sec. Prox ICA 109.5/21.7 cm/sec. Prox ICA 85.7/19.9 cm/sec. Mid ICA 107.3/17.3 cm/sec. Mid ICA 129.5/19.9 cm/sec. Dist ICA 98.5/21.7 cm/sec. Dist ICA 93.0/14.4 cm/sec. Rt. ICA/CCA = 109.5/139.6=0.8. Lt. ICA/CCA = 129.5/157.6=0.8. Prox ECA 185.7/10.1 cm/sec. Prox ECA 164.9/9.7 cm/sec. Rt. Vert. 70.2/15.0 cm/sec. Lt. Vert. 93.0/14.4 cm/sec. Right Extracranial There is homogeneous, smooth atherosclerotic plaque noted in the right common carotid artery. There is heterogeneous, irregular atherosclerotic plaque noted in the right internal carotid artery. There is intimal thickening but no significant atherosclerotic plaque noted in the right external carotid artery. Antegrade flow is noted in the right vertebral artery. Left Extracranial There is homogeneous, smooth atherosclerotic plaque noted in the left common carotid artery. There is heterogeneous, irregular atherosclerotic plaque noted in the left internal carotid artery. There is heterogeneous, irregular atherosclerotic plaque noted in the left external carotid artery. Antegrade flow is noted in the left vertebral artery. There is heterogeneous, irregular atherosclerotic plaque noted in the left bulb. Procedure Carotid Duplex 66897. This is a Carotid Duplex examination using B-mode, color flow and specral Doppler. Exam performed in department. VL/Carotid Duplex Ultrasound Interpretation Summary Mild (<50%) stenosis right extracranial internal carotid. Moderate (50-69%) adriano nosis left extracranial internal carotid. Flow within the vertebral arteries is antegrade bilaterally. Ordering Physician: Mahendra Singh Referring Physician: Esther Costello Performed By: Terri Dunaway, YECENIA, RVT
== END ==
PROVIDERS: PCP Internal Medicine; Referring Provider Surgery Vascular Surgery; Visit Provider Surgery Vascular Surgery
DX: I65.23 Occlusion and stenosis of bilateral carotid arteries (principal)
CPT/HCPCS: 93880

== ENCOUNTER → 2021-02-17 10:21 | Outpatient (CLI) | payer OTHER, SELFPAY ==
[2021-02-17 10:42] LABS: Hematocrit 43.9 % (40-54); Hemoglobin 14.4 g/dL (13.0-16.5); Mean Corp Hgb Conc 32.8 g/dL (32-36); Mean Corpuscular Hgb 31.2 pg (27.0-32.0); Mean Corpuscular Volume 95.2 fL (80-94); Mean Platelet Vol. 10.2 fl (6.2-12.0); Platelet Count 285 K/mm3 (150-450); RBC Distribution Width CV 13.6 % (11.6-14.6); RBC Distribution Width SD 47.9 fl (35.1-43.9); Red Blood Count 4.61 M/mm3 (4.6-6.2); White Blood Count 9.4 K/mm3 (4.4-11.0)
[2021-02-17 11:09] LABS: AST(SGOT) 17 U/L (15-37); Alanine Aminotransfer ALT/SGPT 24 U/L (16-61); Albumin, Serum 3.8 g/dL (3.2-5.0); Alkaline Phosphatase 62 U/L (45-117); Anion Gap 6 (5-15); BUN 16 mg/dL (7-18); BUN/Creat Ratio 14.7 RATIO (10-20); Calcium,Total 9.4 mg/dL (8.5-10.1); Chloride 104 mmol/L (98-107); Cholesterol 166 mg/dL (200); Creatinine, Serum 1.09 mg/dL (0.70-1.30); EST Glomerular Filtration Rate 70 mL/min (>60); Est Glom Filt Rate - Afr Amer 85 mL/min (>60); Globulin 3.8 g/dL (2.2-4.2); Glucose 96 mg/dL (74-106); High Density Lipoprotein 51 mg/dL; Potassium 3.7 mmol/L (3.5-5.1); Protein, Total 7.6 g/dL (6.4-8.2); Sodium Level 140 mmol/L (136-145); Triglycerides 108 mg/dL; Very Low Density Lipoprotein 22 mg/dL (5-40)
[2021-02-17 11:20] LABS: Vitamin D,25 Hydroxy 20.4 ng/mL
== END ==
PROVIDERS: PCP Internal Medicine; Referring Provider Internal Medicine; Visit Provider Internal Medicine
DX: E78.2 Mixed hyperlipidemia (principal); E55.9 Vitamin D deficiency, unspecified; I10 Essential (primary) hypertension; Z79.899 Other long term (current) drug therapy
CPT/HCPCS: 36415; 80053; 80061; 82306; 85027